=== PATIENT | female | born 1970 | race Two or more races ===

== ENCOUNTER 2018-08-23 06:25 | Day surgery (SDC) | payer OTHER ==
[2018-08-22 11:50] VITALS: BMI 38.7
--- NOTE | 2018-08-22 21:35 | HP ---
HISTORY OF PRESENT ILLNESS: Ms. Darling is a pleasant 47-year-old woman here today for evaluation of severe posterior neck pain, bilateral interscapular pains and radiating arm pains bilaterally. Of note, the left upper extremity seems to fit a C7 pattern and the right upper extremity seems to fit a C6 pattern. In addition, she has axial lower back pain. She has attempted several interventions including facet blocks, epidural steroid injections and trigger point injections with modest relief at best. She brings an MRI and disc from [facility] of her cervical and lumbar spines that reveals right-sided severe foraminal stenosis from facet disease at C5-6 as well as severe left-sided foraminal stenosis secondary to disk herniation C6-7. Both of these fitting her symptoms well. Lumbar MRI reveals diffuse arthropathy, but nothing that would be causative of definitive neural compression. PAST MEDICAL HISTORY: Significant for chronic pain, depression, gastric ulcer, asthma, seasonal allergies, osteoarthritis, anxiety, migraines. PAST SURGICAL HISTORY: section x5, tubal ligation, tonsillectomy. CURRENT MEDICATIONS: 1. Adderall. 2. Cashmere. 3. Loratadine. 4. Montelukast. 5. Methocarbamol. 6. Fluticasone. 7. Symbicort. ALLERGIES: TO LITHIUM, GABAPENTIN, TRAMADOL, DEPAKOTE, WELLBUTRIN. PHYSICAL EXAMINATION: GENERAL: The patient is alert and oriented x3. Gait is normal. No ataxia. EXTREMITIES: Upper extremity motor exam is normal. ASSESSMENT: Cervical radiculopathy. PLAN: Dr. Garnica met with the patient, reviewed imaging, advocated for C5 through C7 ACDF. He explained to the patient the risks, benefits, and alternatives to the procedure. The patient expressed understanding and elected to move forward with surgery as discussed. I do believe the patient is mentally competent and capable of making medical decisions for herself. We will move forward with surgery as planned. Job ID: [id number]
[2018-08-23] MEDS ORDERED: Fentanyl 100 MCG/2 ML VIAL ONE ×3 (11:15→15:04)
[2018-08-23] MEDS ORDERED: HYDROmorphone 2 MG/ML VIAL ONE ×2 (13:19→13:49)
[2018-08-23] MEDS ORDERED: Cyclobenzaprine 10 MG TAB ONE (13:39)
[2018-08-23] MEDS ORDERED: Promethazine HCl 25 MG/ML VIAL ONE (13:43)
[2018-08-23] MEDS ORDERED: HYDROcodone/Acetaminophen 5/325 mg Tablet ONE (16:46)
--- NOTE | 2018-08-23 17:43 | OP ---
DATE OF PROCEDURE: 08/23/2018 YARDER: Rubén Burrows PA-C INDICATION: Pain. DIAGNOSIS: Cervical radiculopathy. PROCEDURES PERFORMED: Anterior cervical diskectomy and fusion C5 through C7. ANESTHESIA: General. DESCRIPTION OF PROCEDURE: The patient was brought into the operating room and placed under general anesthesia. She was placed on table in a supine position. A transverse incision was planned over the lateral aspect of the neck on the right. After prepping and draping and after an appropriate operative pause, the incision was created. The underlying platysma muscle was identified and incised. A blunt tissue plane anterior to the sternocleidomastoid muscle was used to gain access to the prevertebral space. Self-retaining retractors were placed. The C-arm images obtained to confirm the appropriate level. An annulotomy was performed at the C6-C7 disk space, where all disk material as well as anterior and posterior osteophytes were removed. After completely decompressing the segment, a 6 mm lordotic PEEK cage packed with allograft and autograft material was placed within the interbody space. We then redirected our attention to the level above at C5-C6, where again an annulotomy was performed. With the aid of distraction pins, disk material was removed as well as anterior and posterior osteophytes. After completely decompressing the segment, a 6 mm lordotic PEEK cage packed with allograft and autograft material was placed within the interbody space. An anterior cervical plate was then fashioned to the front of spine and secured with a total of 6 screws. Midline and lateral structures were inspected and found to be free from significant trauma. The wound was irrigated. Hemostasis was maintained throughout. The wound was then closed in anatomic layers and a pressure dressing was applied. There were no known procedural complications. Job ID: [id number]
== END 2018-08-23 17:22 | disposition home or self-care (01) ==
LOC: SDC 06:25
PROVIDERS: ATTEND Neurological Surgery
PROC: 0RG2070 Fusion of 2 or more Cervical Vertebral Joints with Autologous Tissue Substitute, Anterior Approach, Anterior Column, Open Approach (ICD-10-PCS; principal; 2018-08-23)
PROC: 0RG20A0 Fusion of 2 or more Cervical Vertebral Joints with Interbody Fusion Device, Anterior Approach, Anterior Column, Open Approach (ICD-10-PCS; principal; 2018-08-23)
PROC: 0RT30ZZ Resection of Cervical Vertebral Disc, Open Approach (ICD-10-PCS; principal; 2018-08-23)
DX: M54.12 Radiculopathy, cervical region (principal); G89.29 Other chronic pain; F41.8 Other specified anxiety disorders; F32.9 Major depressive disorder, single episode, unspecified; J45.909 Unspecified asthma, uncomplicated; M19.90 Unspecified osteoarthritis, unspecified site; Z79.51 Long term (current) use of inhaled steroids; Z79.899 Other long term (current) drug therapy; Z88.6 Allergy status to analgesic agent; Z88.8 Allergy status to other drugs, medicaments and biological substances
CPT/HCPCS: 76000; C1713; C1776; J0690; J1170; J2550; J3010